=== PATIENT | male | born 1985 | race Hispanic/Latino ===

== ENCOUNTER 2020-12-21 15:44 | Emergency (ER) | payer SELFPAY ==
[2020-12-21 16:45] VITALS: BP 151/97
--- NOTE | 2020-12-21 16:49 | Event Note ---
ED Screening Note Date of service: 12/21/20 Time: 16:47 ED Screening Note: 35 yo male presents withleft elbow redness , pain and swelling This initial assessment/diagnostic orders/clinical plan/treatment(s) is/are subject to change based on patients health status, clinical progression and re-assessment by fellow clinical providers in the ED. Further treatment and workup at subsequent clinical providers discretion. Patient/guardian urged not to elope from the ED as their condition may be serious if not clinically assessed and managed. Initial orders include: cbc,bmp, iv clindan xr
--- NOTE | 2020-12-21 17:19 | XRay Report ---
Left elbow 2 views INDICATION: Swelling FINDINGS: Alignment appears normal. No acute fracture dislocation. There is mild diffuse soft tissue swelling. Underlying cellulitis cannot be excluded. If symptoms persist MRI could be performed. Signer Name: Talib Pan MD Signed: 12/21/2020 5:15 PM Workstation Name: [id number]
[2020-12-21 17:29] LABS: Basophils % (Auto) 0.4 % (0.0-1.8); Eosinophils # (Auto) 0.2 K/mm3 (0.0-0.4); Eosinophils % (Auto) 2.4 % (0.0-4.3); Hemoglobin 15.3 gm/dl (11.8-15.2); Lymphocytes # (Auto) 1.8 K/mm3 (1.2-5.4); Lymphocytes % (Auto) 23.6 % (13.4-35.0); Mean Corpuscular HGB Conc 34 % (32-34); Mean Corpuscular Volume 93 fl (84-94); Monocytes # (Auto) 0.8 K/mm3 (0.0-0.8); Monocytes % (Auto) 9.9 % (0.0-7.3); Platelet Count 240 K/mm3 (140-440); Red Blood Count 4.83 M/mm3 (3.65-5.03); Red Cell Distribution Width 12.3 % (13.2-15.2)
[2020-12-21 17:44] LABS: BUN/Creatinine Ratio 11; Blood Urea Nitrogen 11 mg/dL (9-20); Calcium 9.1 mg/dL (8.4-10.2); Hemolysis Index 18
[2020-12-21] MEDS ORDERED: KETOROLAC 30 MG/1 ML INJ IV ONE (21:55)
--- NOTE | 2020-12-21 22:06 | Emergency Department Report ---
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 He reports no known trauma no known puncture wounds he denies any illicit drug use no known contact with any insects no immune deficiency types type syndromes. Pain is dull and throbbing worse with palpation and range of motion begin to radiate down the forearm is and states the redness is swollen since admission initially noticing the onset earlier today MD complaint: discoloration -: Gradual Tetanus Up to Date: no Location: LUE Quality: aching, dull Consistency: constant - Related Data Previous Rx's Medication Instructions Recorded Last Taken Type Clindamycin [Clindamycin CAP] 150 mg PO Q6HR #40 capsule 12/21/20 Unknown Rx Ketorolac [Toradol] 10 mg PO Q6H PRN #20 tablet 12/21/20 Unknown Rx Allergies Allergy/AdvReac Type Severity Reaction Status Date / Time No Known Allergies Allergy Unverified 12/21/20 16:45 Abscess Boil HPI - HPI Chief Complaint: Extremity Injury, Upper Stated Complaint: LT ELBOW PAIN/SWELLING Time Seen by Provider: 12/21/20 19:37 Home Medications: Previous Rx's Medication Instructions Recorded Last Taken Type Clindamycin [Clindamycin CAP] 150 mg PO Q6HR #40 capsule 12/21/20 Unknown Rx Ketorolac [Toradol] 10 mg PO Q6H PRN #20 tablet 12/21/20 Unknown Rx Allergies/Adverse Reactions: Allergies Allergy/AdvReac Type Severity Reaction Status Date / Time No Known Allergies Allergy Unverified 12/21/20 16:45 ED Review of Systems ROS: Stated complaint: LT ELBOW PAIN/SWELLING Other details as noted in HPI Comment: All other systems reviewed and negative ED Past Medical Hx - Past Medical History Previous Medical History?: No - Surgical History Past Surgical History?: No - Medications Home Medications: Home Medications Medication Instructions Recorded Confirmed Last Taken Type Clindamycin [Clindamycin CAP] 150 mg PO Q6HR #40 capsule 12/21/20 Unknown Rx Ketorolac [Toradol] 10 mg PO Q6H PRN #20 tablet 12/21/20 Unknown Rx ED Physical Exam - General Limitations: No Limitations General appearance: alert, in no apparent distress - Head Head exam: Present: atraumatic, normocephalic - Eye Eye exam: Present: normal appearance - ENT ENT exam: Present: mucous membranes moist - Neck Neck exam: Present: normal inspection - Respiratory Respiratory exam: Present: normal lung sounds bilaterally. Absent: respiratory distress - Cardiovascular Cardiovascular Exam: Present: regular rate, normal rhythm. Absent: systolic murmur, diastolic murmur, rubs, gallop - GI/Abdominal GI/Abdominal exam: Present: soft, normal bowel sounds - Rectal Rectal exam: Present: deferred - Extremities Exam Extremities exam: Present: normal inspection, tenderness, joint swelling (Left elbow cellulitis for the lymphangitis is noted. Mild swelling to the lateral forearm region. Patient extremities, 5 pulses 2+ cap refills are brisk.) - Back Exam Back exam: Present: normal inspection. Absent: CVA tenderness (R), CVA te nderness (L) - Neurological Exam Neurological exam: Present: alert, oriented X3, CN II-XII intact, normal gait - Psychiatric Psychiatric exam: Present: normal affect, normal mood. Absent: flat affect, manic - Skin Skin exam: Present: warm, dry, intact, normal color. Absent: rash ED Course Vital Signs 12/21/20 12/21/20 16:42 23:15 Temperature 98.8 F Pulse Rate 74 52 L Respiratory 18 15 Rate Blood Pressure 151/97 [Right] O2 Sat by Pulse 100 100 Oximetry ED Medical Decision Making - Lab Data Result diagrams: 12/21/20 17:05 12/21/20 17:05 - Medical Decision Making Presentation consistent with simple cellulitis. Given history, exam, work-up I have low suspicion for necrotizing fasciitis, abscess, osteomyelitis, DVT or other emergent problem as cause for this presentation. The patient is nontoxic appearing and vital signs are stable. There is a reasonably low risk for treatment failure based on history. Strict return precautions were discussed with patient with full understanding. Advised patient to follow-up promptly with primary care care doctor within the next 48 hours. Critical care attestation.: If time is entered above; I have spent that time in minutes in the direct care of this critically ill patient, excluding procedure time. ED Disposition Clinical Impression: Cellulitis Disposition: DC- TO HOME OR SELFCARE Is pt being admited?: No Does the pt Need Aspirin: No Condition: Stable Instructions: Cellulitis, Adult Prescriptions: Clindamycin [Clindamycin CAP] 150 mg PO Q6HR #40 capsule Ketorolac [Toradol] 10 mg PO Q6H PRN #20 tablet PRN Reason: Pain Referrals: ARETHA WAGNER MD [Staff Physician] - 3-5 Days PRIMARY CARE, [Primary Care Provider] - 3-5 Days
== END 2020-12-21 23:15 | disposition home or self-care (01) ==
LOC: ED 15:44
DX: L03.114 Cellulitis of left upper limb (principal); Z79.899 Other long term (current) drug therapy
CPT/HCPCS: 36415; 73070; 80048; 82140; 85025; 96365; 96375; 99284; J1885